=== PATIENT | female | born 1970 | race Asian ===

== ENCOUNTER 2025-05-15 13:24 | Outpatient (RCR) | payer MEDICAID, SELFPAY | END 2025-07-17 13:07 | disposition home or self-care (01) | PROVIDERS: Visit Provider Orthopaedic Surgery Sports Medicine | DX: M19.012 Primary osteoarthritis, left shoulder (principal); M19.011 Primary osteoarthritis, right shoulder; M17.0 Bilateral primary osteoarthritis of knee; Z51.89 Encounter for other specified aftercare | CPT/HCPCS: 97032; 97110; 97162 ==